=== PATIENT | female | born 1975 | race Caucasian/White ===

== ENCOUNTER → 2016-12-01 | Outpatient (CLI) | payer BC ==
[2016-12-01 17:40] LABS: BASO % 0.3 %; BASO ABS # 0.02 K/uL (0-0.2); COMPLETE YES; EOS % 0.8 %; HEMATOCRIT 38.8 % (37-47); IG% 0.3 %; LYMPH % 30.3 %; LYMPH ABS # 1.91 K/uL (1.2-3.4); MEAN CELL VOLUME 92.4 fL (80-100); MEAN CORPUSCULAR HEMOGLOBIN 29.8 pg (25-34); MEAN CORPUSCULAR HGB CONC 32.2 g/dl (32-36); MEAN PLATELET VOLUME 9.7 fL (7.4-10.4); MONO % 8.2 %; NEUT % 60.1 %; PLATELET COUNT 221 K/uL (130-400); WHITE BLOOD COUNT 6.31 K/uL (4.8-10.8)
[2016-12-01 18:18] LABS: LYME DISEASE AB IGG NEG (NEG); LYME DISEASE AB IGM NEG (NEG)
[2016-12-01 18:35] LABS: ALB/GLOB RATIO 1.2 (0.9-2); ALKALINE PHOSPHATASE 37 U/L (45-117); ALT/SGPT 23 U/L (12-78); AST/SGOT 15 U/L (15-37); BLOOD UREA NITROGEN 20 mg/dl (7-18); BUN/CREATININE RATIO 23.9 (10-20); CARBON DIOXIDE 25 mmol/L (21-32); CHLORIDE 102 mmol/L (98-107); CREATININE 0.83 mg/dl (0.60-1.20); GLUCOSE 89 mg/dl (70-99); POTASSIUM 3.6 mmol/L (3.5-5.1); SODIUM 139 mmol/L (136-145)
[2016-12-01 18:47] LABS: RHEUMATOID FACTOR < 10.0 U/mL (0-15)
[2016-12-01 19:03] LABS: CALCIUM 8.6 mg/dl (8.5-10.1)
--- NOTE | 2016-12-07 08:14 | CODING QUERY MEDICAL NECESSITY ---
SUPPORTING DIAGNOSIS NEEDED Dr. James, A supporting diagnosis is required for the test/procedure performed on this patient in order for us to be reimbursed by the patient's insurance. Please provide a supporting diagnosis for the following test/procedure listed below next to the test name along with your signature. *If there is no additional diagnosis for this patient that would support the following test/procedure please document that below next to the test/procedure. Test(s)/Procedure(s) that require a supporting diagnosis: * ([id number]) VITAMIN D ASSAY DIAGNOSIS: DATE OF SERVICE: 12/01/16 Provider Signature: Date: Thank you Lee Marcus [facility] Information Management Once completed, please kindly fax back to [phone] For questions please call [phone]
== END | disposition home or self-care (01) ==
LOC: C.LABPVFM 14:18
PROVIDERS: ATTEND Family Medicine
DX: R53.83 Other fatigue (principal); M25.50 Pain in unspecified joint; W57.XXXA Bitten or stung by nonvenomous insect and other nonvenomous arthropods, initial encounter; E55.9 Vitamin D deficiency, unspecified

== ENCOUNTER → 2017-08-13 | Outpatient (CLI) | payer BC ==
--- NOTE | 2017-08-13 14:44 | MAMMOGRAPHY REPORT ---
BILATERAL DIGITAL DIAGNOSTIC MAMMOGRAM TOMOSYNTHESIS WITH CAD AND TARGETED RIGHT ULTRASOUND: 8 CLINICAL HISTORY: 42-year-old woman due for annual screening mammogram presents after her provider fe lt a lump in the anterior right breast. Patient initially presented to her provider with a changing nevus in the lower inner quadrant of the right breast, near the areolar edge. Prior mammogram perfor med in [place] is not currently available for review, and is currently being requested. TECHNIQUE: Bilateral breast tomosynthesis in addition to standard 2D mammography was performed. Curre nt study was also evaluated with a Computer Aided Detection (CAD) system. COMPARISON: No prior exams were available for comparison. BREAST COMPOSITION: The tissue of both breasts is heterogeneously dense, which may obscure small mas ses. FINDINGS: A triangular palpable marker overlies the 8:00 anterior right breast, denoting the lump brenda ntified by the patient's provider. In the area of concern in the right breast, there is no evidence of a suspicious mass, asymmetry, area of architectural distortion or microcalcifications. Overall, n o suspicious mass, architectural distortion or cluster of microcalcifications is seen bilaterally. N o focal skin thickening is appreciated bilaterally. Targeted ultrasound was performed in the area of palpable lump pointed out by the patient, in the low er outer periareolar right breast. Sonographically normal tissue is seen without a suspicious solid or cystic mass. No focal skin thickening appreciated. On visual inspection, the nevus in question is located along the areolar at of the lower inner quadra nt of the right breast. It measures 8 mm in maximum dimension, is brownish-black in color, and accor ding to the patient it is changing in texture and size. Therefore, dermatologic or surgical consulta tion for possible excision is recommended. IMPRESSION: ACR BI-RADS CATEGORY 2: BENIGN, TARGETED ULTRASOUND ACR BI-RADS CATEGORY 2: BENIGN 1. No suspicious mammographic or targeted sonographic abnormality in the area of palpable concern in the lower outer periareolar/subareolar right breast. Therefore, clinical follow-up is recommended, as biopsy of a clinically suspicious mass should not be precluded by negative imaging. 2. Overall, no mammographic evidence of malignancy in the breasts. However, we'll request a prior o utside mammogram from [place] and perform an addendum once it is available. 3. Dermatologic or surgical consultation is recommended for assessment of a changing 8 mm nevus loca elina along the areolar edge of the lower inner quadrant of the right breast. These results and recommendations were discussed with the patient at the time of the exam. Approximately 10% of breast cancers are not detected with mammography. A negative mammographic report should not delay biopsy if a clinically suggestive mass is present. Mamta Tello M.D. ay/:08/13/2017 09:27:51 Tyre Retreader: Lake NIEVES)(Theresa), [facility] letter sent: Normal 1/2 BI-RADS Code: ACR BI-RADS Category 2: Benign Ultrasound BI-RADS: ACR BI-RADS Category 2: Benign
== END | disposition home or self-care (01) ==
LOC: C.MAMM 08:43
PROVIDERS: ATTEND Family Medicine
DX: R92.8 Other abnormal and inconclusive findings on diagnostic imaging of breast (principal); N63.10 Unspecified lump in the right breast, unspecified quadrant

== ENCOUNTER 2022-10-13 15:31 | Observation (INO) ==
--- NOTE | 2022-10-13 15:45 | ED Triage Note ---
Date of Service October 13, 2022 History of Present Illness This patient was briefly evaluated while in triage. An abbreviated physical exam was performed. This patient is a 47-year-old Female who presents to the ED for evaluation of multiple complaints including chest pain, dizziness, pressure behind left eye. Her chest pain has been intermittent over the last few weeks. It is located substernally. No alleviating or exacerbating factors. She denies recent cold like symptoms, fever/chills, SOB, abdominal pain. Physical Exam Constitutional: alert and oriented x3. no acute distress. HEENT: normocephalic, atraumatic. normal conjunctiva. EOM's grossly intact. Neck: neck is supple, nontender. C-spine nontender Respiratory: lungs are clear to auscultation without wheezes, rhonchi, or rales bilaterally. equal chest rise. normal respiratory effort, no accessory muscle use. Cardiovascular: normal heart sounds without murmur. regular rate and rhythm. GI: abdomen is soft, nontender. No palpable masses. No rebound tenderness or guarding. No CVA tenderness Neuro: without focal neuro deficits. Speech clear, tongue midline, without facial droop. Psych:appropriate mood and affect. Initial orders for labs and / or imaging were placed and patient was placed in the waiting area until a bed is available. Please see further documentation for the full ED course.
[2022-10-13 16:37] LABS: Basophils # (auto) 0.03 K/uL (0-0.2); Basophils % (auto) 0.6 %; Eosinophils # (auto) 0.06 K/uL (0-0.50); Eosinophils % (auto) 1.1 %; Hematocrit (blood only) 40.1 % (37.0-47.0); Hemoglobin 13.5 g/dl (12.0-16.0); Immature Granulocytes # (auto) 0.02 K/uL (0.01-0.20); Immature Granulocytes % (auto) 0.4 %; Lymphocytes # (auto) 1.56 K/uL (1.2-3.4); Lymphocytes % (auto) 28.7 %; Mean Corpuscular Hemoglobin 30.5 pg (25.0-34.0); Mean Corpuscular Hgb Conc 33.7 g/dL (32.0-36.0); Mean Corpuscular Volume 90.5 fL (80.0-100.0); Mean Platelet Volume 9.3 fL (9.4-12.4); Monocytes # (auto) 0.44 K/uL (0.11-0.59); Monocytes % (auto) 8.1 %; Neutrophils # (auto) 3.33 K/uL (1.40-6.50); Neutrophils % (auto) 61.1 %; Platelet Count 240 K/uL (130-400); RDW Standard Deviation 43.2 fL (36.4-46.3); Red Blood Count 4.43 M/uL (4.20-5.40); White Blood Count 5.44 K/ul (4.8-10.8)
[2022-10-13 16:54] LABS: Alanine Aminotransferase 33 U/L (7-52); Albumin Globulin Ratio 1.5 (0.9-2); Albumin Level 4.4 gm/dl (3.4-5.0); Alkaline Phosphatase 60 U/L (34-104); Anion Gap 5 (3-11); Aspartate Aminotransferase 26 U/L (13-39); BUN Creatinine Ratio 15.9 (10-20); Bilirubin,Total 0.6 mg/dl (0.2-1.0); Blood Urea Nitrogen 10 mg/dl (6-23); Calcium 9.1 mg/dl (8.6-10.3); Carbon Dioxide 30 mmol/L (21-32); Chloride 103 mmol/L (98-107); Est GFR (African American) 122.9 ml/min; Est GFR (Non-African American) 106.1 ml/min; Globulin 2.9 gm/dl (2.5-4.0); Glucose 110 mg/dl (70-99(Fasting)); Lipase 25 U/L (11-82); Potassium 3.4 mmol/L (3.5-5.1); Sodium 138 mmol/L (136-145); Total Protein 7.3 gm/dl (6.0-8.3)
[2022-10-13 16:59] LABS: Troponin I High Sensitivity 3.9 pg/ml (0-14)
[2022-10-13 17:04] LABS: Partial Thromboplastin Ratio 1.1; Partial Thromboplastin Time 29.9 Seconds (21.0-31.0); Prothrombin Time 10.9 Seconds (9.0-12.0)
--- NOTE | 2022-10-13 17:04 | Emergency Department Note ---
History of Present Illness General Chief complaint: Chest Pain Stated complaint: CHEST PAIN,DIZZY Time Seen by Provider: 10/13/22 16:43 Source: patient and RN notes reviewed Mode of arrival: ambulatory Limitations: no limitations History of Present Illness Maximum Pain Intensity: 3 This patient is a 47-year-old female comes in after having chest pain. She says that sharp and behind her left breast that radiates to her back at times she has been having this for the last year and a half she saw her doctor and she said insurance would not approve any testing because she was too young. She has had intermittently since then it last 2 to 3 minutes it feels like needles and tingling it occurs both at exertion and rest. There is no particular pattern to it. No trauma or injury. No shortness of breath or pleurisy no lower extremity pain or swelling. She has been busy working and been her a lot of stress lat gordy. She does have a family history her mother had a CABG at 48 and aunt in her 40s. Home Medications Medication Instructions Recorded Confirmed Type aspirin 81 mg tablet,delayed 81 - 162 mg PO DAILY PRN Chest Pain 04/21/19 10/13/22 History release (Familia Low Dose Aspirin) ibuprofen 200 mg tablet (IBU-200) 200 mg PO Q6H PRN Pain 10/13/22 10/13/22 History Allergies Allergy/AdvReac Type Severity Reaction Status Date / Time Penicillins Allergy HIVES Verified 10/13/22 17:31 Iodinated Contrast Media AdvReac Severe ANAPHYLAXIS Verified 10/13/22 17:31 Past Med/Surg History Medical History Dizziness History of endometriosis Menorrhagia Pelvic pain Surgical History H/O laparoscopy History of surgery benign tumor excision on leg Family History Aunt Breast cancer paternal aunt Denies family history of Ovarian cancer Colorectal cancer Uterine cancer Social History Smoking Status: Never smoker Second Hand Exposure: No; Do You Dip or Chew Tobacco: No; Hx Alcohol Use: No Hx Substance Use: No Preferred Language: Khmer Communication Ability: Effective Drywall Taper Required: No Beliefs That Will Affect Care: None marital status: Current Living Situation: Spouse current occupational status: employed Feels Safe at Home: Yes caffeine: Yes (coffee) Dental Care, Regularly: Yes Physical Activity Frequency: Daily Seatbelt Use: always Sunscreen Use: Yes Assistive Devices: None Review of Systems A total of 10 systems reviewed and were otherwise negative Physical Exam Vital Signs Vital Signs - 24 hr 10/13/22 15:41 10/13/22 16:35 10/13/22 16:47 Temperature 36.7 C Temperature Source Temporal Artery Scan Pulse Rate 80 75 Pulse Rate [Right Brachial] 79 Pulse Rhythm [Right Brachial] Regular Pulse Strength [Right Brachial] Normal Respiratory Rate 20 18 Respiratory Effort / Characteristics Non-Labored Spontaneous Respiratory Depth Normal Normal Respiratory Pattern Regular Blood Pressure 166/95 H Blood Pressure [Right Arm] 141/93 H Blood Pressure Mean 118 Blood Pressure Mean [Right Arm] 109 Blood Pressure Position Sitting Blood Pressure Position [Right Arm] Lying Pulse Oximetry 100 99 Oxygen Delivery Method Room Air Room Air Sepsis Recent Fever Within 48 Hours No Sepsis New/Unexplained Change in Mental Status No Sepsis Action Taken by Nursing No Action Required General: Well developed well nourished middle-age female who appears in no acute distress, breathing comfortably on room air. Normal speech HEENT: Normal cephalic atraumatic. Pupils are equal round and reactive to light. Extraocular movements are intact. Oropharynx is pink with moist mucous membranes. No swelling of the mouth lips or tongue. Neck: Supple with a midline trachea. No meningeal signs or stiffness, no JVD or bruits. No Stridor. Chest: Clear to auscultation bilaterally. No wheezes or rhonchi. No increased work of breathing. She is tender to palpation in the left anterior chest Heart: Regular rate and rhythm without murmurs or gallops. Abdomen: Soft nontender, nondistended without rebound guarding or rigidity. Extremities: No cyanosis clubbing or edema. No calf tenderness or assymetry Spine/Back. Non tender to palpation. No CVA tenderness Skin: Good turgor without rashes. Neurologic exam: Cranial nerves two through 12 are intact. Motor and sensation are intact and symmetrical throughout. Procedures Free Text Procedures The patient was placed in observation status at 2020 @ 10/13/22 for evaluation of chest pain. During the time in observation, the patient was frequently reassessed and received continuous cardiac monitoring, EKGs x3 that were nonischemic appearing, 2 negative troponins. On Final reassessment the patient work-up was unremarkable however the patient felt worse and continued chest pain and the patient will be further observed in the hospital at 202010/13/22 at this time. A total observation time of 4 hours and 36 minutes. Course Administered Medications Discontinued Medications Acetaminophen (Acetaminophen 325 Mg Tab) 650 mg PO Q4H PRN PRN Reason: Pain or Fever Stop: 11/12/22 21:54 Last Admin: 10/14/22 06:11 Dose: 650 mg Documented By: YEYO Aspirin (Aspirin Chew 324 Mg) 324 mg PO NOW STA Stop: 10/13/22 19:27 Last Admin: 10/13/22 19:37 Dose: 324 mg Documented By: TJ Medical Decision Making Differential Diagnosis Acute coronary syndrome, arrhythmia, musculoskeletal, aortic, pulmonary, embolic, costochondritis Medical Records Attestation: I reviewed the patient's medical records. Home Medications Current Medication List: was personally reviewed by me Laboratory Data Attestation: I reviewed the patient's lab results. 10/13/22 16:18 10/13/22 16:18 Lab Results 10/13/22 10/13/22 10/13/22 Range/Units 16:18 16:18 16:18 WBC 5.44 (4.8-10.8) K/ul RBC 4.43 (4.20-5.40) M/uL Hgb 13.5 (12.0-16.0) g/dl Hct 40.1 (37.0-47.0) % MCV 90.5 (80.0-100.0) fL MCH 30.5 (25.0-34.0) pg MCHC 33.7 (32.0-36.0) g/dL RDW Std Deviation 43.2 (36.4-46.3) fL RDW Coeff of Rima 13.0 (11.5-14.5) % Plt Count 240 (130-400) K/uL MPV 9.3 L (9.4-12.4) fL Immature Gran % (Auto) 0.4 % Neut % (Auto) 61.1 % Lymph % (Auto) 28.7 % [place] % (Auto) 8.1 % Eos % (Auto) 1.1 % Baso % (Auto) 0.6 % Neut # (Auto) 3.33 (1.40-6.50) K/uL Lymph # (Auto) 1.56 (1.2-3.4) K/uL [place] # (Auto) 0.44 (0.11-0.59) K/uL Eos # (Auto) 0.06 (0-0.50) K/uL Baso # (Auto) 0.03 (0-0.2) K/uL Immature Gran # (Auto) 0.02 (0.01-0.20) K/uL PT 10.9 (9.0-12.0) Seconds INR 1.0 (0.9-1.1) APTT 29.9 (21.0-31.0) Seconds PTT Ratio 1.1 Sodium 138 (136-145) mmol/L Potassium 3.4 L (3.5-5.1) mmol/L Chloride 103 (98-107) mmol/L Carbon Dioxide 30 (21-32) mmol/L Anion Gap 5 (3-11) BUN 10 (6-23) mg/dl Creatinine 0.63 (0.6-1.2) mg/dl Est Cr Clr Drug Dosing Not Reportable Est GFR ( Amer) 122.9 ml/min Est GFR (Non-Af Amer) 106.1 ml/min BUN/Creatinine Ratio 15.9 (10-20) Glucose 110 H (70-99(Fasting)) mg/dl Calcium 9.1 (8.6-10.3) mg/dl Total Bilirubin 0.6 (0.2-1.0) mg/dl AST 26 (13-39) U/L ALT 33 (7-52) U/L Alkaline Phosphatase 60 (34-104) U/L Troponin I High Sens 3.9 (0-14) pg/ml Total Protein 7.3 (6.0-8.3) gm/dl Albumin 4.4 (3.4-5.0) gm/dl Globulin 2.9 (2.5-4.0) gm/dl Albumin/Globulin Ratio 1.5 (0.9-2) Lipase 25 (11-82) U/L HCG, Qual (Negative) 10/13/22 10/13/22 Range/Units 16:18 18:06 WBC (4.8-10.8) K/ul RBC (4.20-5.40) M/uL Hgb (12.0-16.0) g/dl Hct (37.0-47.0) % MCV (80.0-100.0) fL MCH (25.0-34.0) pg MCHC (32.0-36.0) g/dL RDW Std Deviation (36.4-46.3) fL RDW Coeff of Rima (11.5-14.5) % Plt Count (130-400) K/uL MPV (9.4-12.4) fL Immature Gran % (Auto) % Neut % (Auto) % Lymph % (Auto) % [place] % (Auto) % Eos % (Auto) % Baso % (Auto) % Neut # (Auto) (1.40-6.50) K/uL Lymph # (Auto) (1.2-3.4) K/uL [place] # (Auto) (0.11-0.59) K/uL Eos # (Auto) (0-0.50) K/uL Baso # (Auto) (0-0.2) K/uL Immature Gran # (Auto) (0.01-0.20) K/uL PT (9.0-12.0) Seconds INR (0.9-1.1) APTT (21.0-31.0) Seconds PTT Ratio Sodium (136-145) mmol/L Potassium (3.5-5.1) mmol/L Chloride (98-107) mmol/L Carbon Dioxide (21-32) mmol/L Anion Gap (3-11) BUN (6-23) mg/dl Creatinine (0.6-1.2) mg/dl Est Cr Clr Drug Dosing Est GFR ( Amer) ml/min Est GFR (Non-Af Amer) ml/min BUN/Creatinine Ratio (10-20) Glucose (70-99(Fasting)) mg/dl Calcium (8.6-10.3) mg/dl Total Bilirubin (0.2-1.0) mg/dl AST (13-39) U/L ALT (7-52) U/L Alkaline Phosphatase (34-104) U/L Troponin I High Sens 3.3 (0-14) pg/ml Total Protein (6.0-8.3) gm/dl Albumin (3.4-5.0) gm/dl Globulin (2.5-4.0) gm/dl Albumin/Globulin Ratio (0.9-2) Lipase (11-82) U/L HCG, Qual Negative (Negative) Imaging Data Attestation: I personally reviewed and interpreted this imaging study as follows: My Impression: Chest x-ray-no acute infiltrate, failure, pneumothorax seen Radiologist's Impression: Chest X-Ray 10/13/22 15:45 XR chest 1V portable CLINICAL HISTORY: Chest pain, nonspecific COMPARISON STUDY: Chest radiograph April 21, 2019. FINDINGS: Lung volumes are normal. Lungs are clear. There is no pneumothorax or pleural effusion. Cardiac size is normal. Mediastinal contours are normal. There is no evidence for pulmonary edema. IMPRESSION: No acute cardiopulmonary findings. ACT 112: Negative or not required by law. Electronically signed by: Dean Haq M.D. 10/13/2022 5:08 PM ECG Data Attestation: I personally reviewed and interpreted this ECG as follows: Indication: + chest pain Rate (beats per minute): 74 Rhythm: + normal sinus ECG Intervals/blocks: + Normal QRS, + Normal QT and + Normal TX ECG Hammond: + Normal ECG ST segments: + Normal ST segments ECG Findings: no PACs or no PVCs Comparison ECG Date: no prior available MDM Narrative This patient comes in described above she has chest pain has been going on for a year and a half. It is got worse today. She was placed on ED observation given her family history. on my exam it it is reproducible she does have some cardiac risk factors with family history although otherwise has no risk factors she is physically active and does not have chest pain when she exerts herself or shortness of breath. EKG is reassuring does not show ischemic changes troponin is negative. She has a normal neurologic exam she looks well. I did a second EKG and second troponin , chest x-ray was obtained as well. EKGs were unrema rkable no changes old. Troponins were within normal limits. Chest x-ray is unremarkable. She is also give electrolyte or metabolic abnormality. I went back to reassess her and she says she is not feeling better in fact feels worse I did a 30 EKG is unremarkable. I do think she would benefit from further evaluation and treatment and I did discuss the case with Dr. Ibarra and consulted him to see her for these measures. Continuous cardiac monitoring: Orders placed in EMR for continuous cardiac monitoring: Upon my evaluation the patient was noted to be in normal sinus rhythm with a rate of 70 Impression & Plan Chest pain, Family history of coronary artery disease, Not currently Discharge Plan Visit Data Chief Complaint: Chest Pain Stated Complaint: CHEST PAIN,DIZZY ED Provider: Lanre Spence Discharge Problem: Chest pain, Family history of coronary artery disease, Not currently Patient Disposition: Admitted As Inpatient Discharge Instructions Interventions: ED Discharge Assessment Last Done: 10/13/22 21:22
--- NOTE | 2022-10-13 17:09 | XRay Report ---
XR chest 1V portable CLINICAL HISTORY: Chest pain, nonspecific COMPARISON STUDY: Chest radiograph April 21, 2019. FINDINGS: Lung volumes are normal. Lungs are clear. There is no pneumothorax or pleural effusion. Car diac size is normal. Mediastinal contours are normal. There is no evidence for pulmonary edema. IMPRESSION: No acute cardiopulmonary findings. ACT 112: Negative or not required by law. Electronically signed by: Dean Haq M.D. 10/13/2022 5:08 PM
[2022-10-13 17:16] LABS: Pregnancy Test, Serum Negative (Negative)
[2022-10-13] MEDS ORDERED: ASPIRIN CHEW 324 MG PO STA (19:26)
--- NOTE | 2022-10-13 20:40 | History & Physical Report ---
Date of Service October 13, 2022 Assessment & Plan (1) Chest pain: Plan: 47 year old female admitted for observation for chest pain. Chest Pain: -Troponin negative, EKG NSR without acute ST elevation or depression. -Vitals stable. -No worsening with exertion, palpable reproduction reassuring. -Lipid panel from August 2021 with LDL 144, cholesterol 234, HDL 81. -Low ASCVD risk score from previous blood work. -Will obtain TTE to rule out cardiac issues given family history. -Can consider stress test if negative echo. -Continue to monitor on telemetry. F/E/N/GI: Regular diet. DVT Prophylaxis: Low risk for clot, not needed at current time. Code status: Full code. Dispo: Telemetry. History of Present Illness Chief Complaint: Chest pain Primary Care Provider: Emilia Lindsey MD Aubree is a 47 year old female w/ no discernable past medical history comes to the ED for chest pain. Patient has had chest pain over the past few weeks that have lasted between 2-3 minutes up to 35 minutes at times. The chest pain is sharp in nature and occurs at the left mid-sternal chest and radiates to the upper left arm and back. The pain comes about when she is driving or not doing anything and is not felt when she is occupied or busy. The pain does not feel worse with exertion and she is a pretty active person although less so in the past year due to her job being busy. She says the frequency of the chest pain has increased over the past few weeks, now with 5 episodes per week. The increased frequency along with family history made her worried and want to get checked out for the chest pain. Her mother has a history of triple bypass in her 40's, aunt with heart attack. Denies any fevers, chills, nausea, vomiting, diarrhea, constipation, urinary issues. She had gone through menopause starting 2 years ago and gets hot flashes at times. In the ED her EKG had NSR without acute ST elevations or depressions. Troponin 3.3, negative x2. Otherwise blood work unremarkable. Allergies Allergy/AdvReac Type Severity Reaction Status Date / Time Penicillins Allergy HIVES Verified 10/13/22 17:31 Iodinated Contrast Media AdvReac Severe ANAPHYLAXIS Verified 10/13/22 17:31 Home Medications Medication Instructions Recorded Confirmed Type aspirin 81 mg tablet,delayed 81 - 162 mg PO DAILY PRN Chest Pain 04/21/19 10/13/22 History release (Familia Low Dose Aspirin) ibuprofen 200 mg tablet (IBU-200) 200 mg PO Q6H PRN Pain 10/13/22 10/13/22 History Past Med/Surg History Medical History Dizziness History of endometriosis Menorrhagia Pelvic pain Surgical History H/O laparoscopy History of surgery benign tumor excision on leg Family History Aunt Breast cancer paternal aunt Denies family history of Ovarian cancer Colorectal cancer Uterine cancer Social History Smoking Status: Never smoker Second Hand Exposure: No; Hx Alcohol Use: No Hx Substance Use: No Preferred Language: Upper Sorbian Communication Ability: Effective Linux Security Administrator Required: No Beliefs That Will Affect Care: None marital status: Current Living Situation: Spouse current occupational status: employed Feels Safe at Home: Yes caffeine: Yes (coffee) Dental Care, Regularly: Yes Physical Activity Frequency: Daily Seatbelt Use: always Sunscreen Use: Yes Assistive Devices: None Review of Systems Review of Systems: As per HPI. Physical Exam Constitutional: WD/WN, vitals as above Not in any acute distress. Respiratory: normal respiratory effort, lungs clear to auscultation Cardiovascular: RRR, no murmur, no edema Gastrointestinal (Abdomen): normal bowel sounds, soft, nontender, no hepatosplenomegaly Skin: no rashes, warm and dry Psychiatric: A+Ox3, euthymic affect Results & Data Results & Data Vital Signs (Past 12 Hours) Vital Signs Temp Pulse Pulse Resp BP BP Pulse Ox 10/13/22 16:47 75 10/13/22 16:35 79 18 141/93 H 99 10/13/22 15:41 36.7 C 80 20 166/95 H 100 O2 Del Method 10/13/22 16:47 10/13/22 16:35 Room Air 10/13/22 15:41 Room Air Supervising Physician Co-Signing Physician Notes Attending addendum: I have physically seen this patient, have supervised the medical residents activities, and agree with the H&P unless as otherwise noted. Assessment and Plan: Chest pain- The patient will be admitted to telemetry for serial cardiac enzymes, serial EKG's, cardiac rhythm monitoring and a 2-D echocardiogram with Dopplers. Check fasting lipid panel and hemoglobin A1c If negative work-up, stress echocardiogram Resident Activity Tracking Resident Involvement: Resident Care Provided Care Provided: Adult [facility]
[2022-10-13] MEDS ORDERED: ACETAMINOPHEN 325 MG TAB PO PRN (21:55)
[2022-10-13] MEDS ORDERED: IBUPROFEN 200 MG TAB PO PRN (21:55)
[2022-10-14 07:33] LABS: Basophils # (auto) 0.02 K/uL (0-0.2); Basophils % (auto) 0.5 %; Eosinophils # (auto) 0.08 K/uL (0-0.50); Eosinophils % (auto) 1.8 %; Hematocrit (blood only) 39.4 % (37.0-47.0); Hemoglobin 13.1 g/dl (12.0-16.0); Lymphocytes # (auto) 1.37 K/uL (1.2-3.4); Lymphocytes % (auto) 31.2 %; Mean Corpuscular Hemoglobin 30.6 pg (25.0-34.0); Mean Corpuscular Hgb Conc 33.2 g/dL (32.0-36.0); Mean Corpuscular Volume 92.1 fL (80.0-100.0); Mean Platelet Volume 9.4 fL (9.4-12.4); Monocytes # (auto) 0.42 K/uL (0.11-0.59); Monocytes % (auto) 9.6 %; Neutrophils % (auto) 56.9 %; Platelet Count 220 K/uL (130-400); RDW Coefficient of Variation 13.2 % (11.5-14.5); RDW Standard Deviation 44.8 fL (36.4-46.3); Red Blood Count 4.28 M/uL (4.20-5.40); White Blood Count 4.39 K/ul (4.8-10.8)
--- NOTE | 2022-10-14 09:01 | Discharge Summary ---
Date of Service October 14, 2022 Admission HPI Per Admitting Provider Aubree is a 47 year old female w/ no discernable past medical history comes to the ED for chest pain. Patient has had chest pain over the past few weeks that have lasted between 2-3 minutes up to 35 minutes at times. The chest pain is sharp in nature and occurs at the left mid-sternal chest and radiates to the upper left arm and back. The pain comes about when she is driving or not doing anything and is not felt when she is occupied or busy. The pain does not feel worse with exertion and she is a pretty active person although less so in the past year due to her job being busy. She says the frequency of the chest pain has increased over the past few weeks, now with 5 episodes per week. The increased frequency along with family history made her worried and want to get checked out for the chest pain. Her mother has a history of triple bypass in her 40's, aunt with heart attack. Denies any fevers, chills, nausea, vomiting, diarrhea, constipation, urinary issues. She had gone through menopause starting 2 years ago and gets hot flashes at times. In the ED her EKG had NSR without acute ST elevations or depressions. Troponin 3.3, negative x2. Otherwise blood work unremarkable. Admission Exam Per Admitting Provider Constitutional: WD/WN, vitals as above Not in any acute distress. Respiratory: normal respiratory effort, lungs clear to auscultation Cardiovascular: RRR, no murmur, no edema Gastrointestinal (Abdomen): normal bowel sounds, soft, nontender, no hepatosplenomegaly Skin: no rashes, warm and dry Psychiatric: A+Ox3, euthymic affect Principal Diagnosis Chest pain, likely musculoskeletal Discharge Exam Constitutional WD/WN, vitals as above Respiratory normal respiratory effort, lungs clear to auscultation Cardiovascular RRR, no murmur, no edema Gastrointestinal (Abdomen) normal bowel sounds, soft, nontender, no hepatosplenomegaly Skin no rashes, warm and dry Psychiatric A+Ox3, euthymic affect Discharge Data Allergies Allergy/AdvReac Type Severity Reaction Status Date / Time Penicillins Allergy HIVES Verified 10/13/22 17:31 Iodinated Contrast Media AdvReac Severe ANAPHYLAXIS Verified 10/13/22 17:31 Consultations 10/13/22 20:21 ED Decision to Admit Stat Hospital Course (1) Chest pain: 47 year old female admitted for observation for chest pain. Chest Pain: -Troponin negative, EKG NSR without acute ST elevation or depression. -No worsening with exertion, palpable reproduction reassuring -Lipid panel from August 2021 with LDL 144, cholesterol 234, HDL 81. -Low ASCVD risk score from previous blood work -TTE unremarkable -Stress echocardiogram normal -Suspect pain likely musculoskeletal with some contribution from anxiety, cardiac workup has been negative Discharged with recommendation to pursue OMT/MSK-related treatment Total Time Total Time Spent Total Time Spent (In Minutes): <30 Discharge Plan Discharge Items Patient Disposition: Home - Self-Care Reason For Visit: CHEST PAIN RULE OUT Discharge Diagnosis: Chest pain likely musculoskeletal origin Activity: Resume your previous activity Non-emergency contact: Primary Care Provider Call non-emergency contact if: your symptoms worsen Follow-up/Referrals: Emilai Lindsey MD [Primary Care Provider] - 10/21/22 11:30 am Diet: Regular Addtl Attending Provider Instructions: You were admitted to the hospital for chest pain. Thankfully your evaluation did not suggest cardiac disease and your chest pain is more likely musculoskeletal in nature, with some possible contribution from anxiety/stress. You may likely benefit from OMT (osteopathic manipulative treatment) to target this musculoskeletal origin of pain. A discharge summary will be sent to your primary care physician to ensure continuity of care. Please bring this discharge summary with you to your next office appointment so that your provider can review it at that time. Follow-up appointments: - You have an appointment with Dr. Lindsey in October for follow-up. - Keep all your follow-up appointments as already scheduled. If you cannot make an appointment, notify your provider. Medications: Your medication list has been reviewed and reconciled upon discharge to ensure accuracy and continuity of care. An updated list of all your medications is included with your hospital discharge paperwork. Please review this list closely, and make note of any changes. Take your medications as instructed; do not skip a dose of your medicines. Make sure all of your doctors know every medicine you are taking (including fjuv-pcq-qmqvats medicines, vitamins, and supplements). Call your primary care provider before taking any new medicines (including aamm-omg-vcvxkse medicines, vitamins, and supplements), because some of these may interact with your current medications, or may make your symptoms worse. Tell your primary care provider if you cannot afford your medications. CONTACT YOUR PRIMARY CARE PROVIDER if you experience any of the following: -Chest pain -Difficulty breathing -Palpitations -Difficulty following your treatment plan, or difficulty taking medications CALL 911 OR GO TO THE EMERGENCY DEPARTMENT if you experience any of the following: - Sudden, severe abdominal pain or nausea/vomiting - Severe chest pain, or chest pain that radiates (moves) to your jaw or arm - Sudden, severe shortness of breath or difficulty breathing Thank you for allowing us to participate in your care Pending Studies at Discharge: No Stand-Alone Forms: [facility] Medications and DC Order Prescriptions: Continued aspirin [Familia Low Dose Aspirin] 81 mg Tablet,Delayed Release (Dr/Ec) 81 - 162 mg PO DAILY PRN (Reason: Chest Pain) Rx Instructions: Last known dose was 81mg on the morning of 10/13/22 ibuprofen [IBU-200] 200 mg Tablet 200 mg PO Q6H PRN (Reason: Pain) Discharge Orders: Discharge Order (Routine); Ordered 10/14/22 Ordered By: Harman Germain/Other Patient Handouts: ED Chest Pain, Uncertain Cause Admission Data Admit Date/Time: 10/13/22 20:29 Attending Provider: Luis Martinez Admit Provider: Corbin Duran Primary Care Provider: Emilia Lindsey Other Providers: Stiven Mcguire Other Interventions: Discharge Summary Assessment (RN) Last Done: 10/14/22 09:59 Supervising Physician Co-Signing Physician Notes I personally examined the patient and verified all martins points of history and exam, discussed case, and agree with decision making with Dr Beard. Feels better and would like to go home. Chest pain off and on at different times over the last year or so. Heavy exertionis a former resource paraprofessional. Vitals noted, in general she is awake and alert pleasant no distress. HEENT normocephalic atraumatic mucous membranes moist. Breathing unlabored no accessory muscle use good effort. Skin shows no rashes no pallor or icterus. EKG, troponins noted, stress echo negative for ischemic findings. Chest painalmost certainly rib relatedrecommended outpatient OMT with DO in her PCPs office, recommended deep breathing exercises to stretch her intercostals. Safe/stable for home. Resident Activity Tracking Resident Involvement: Resident Care Provided Care Provided: Adult Hospital Medicine
[2022-10-14 10:05] LABS: BUN Creatinine Ratio 14.1 (10-20); Calcium 9.3 mg/dl (8.6-10.3); Est GFR (African American) 122.3 ml/min; Est GFR (Non-African American) 105.5 ml/min; Potassium 4.2 mmol/L (3.5-5.1)
--- NOTE | 2022-10-14 15:17 | XCELERA ---
[id number] \\[id number]\[id number]___[id number].pdf
--- NOTE | 2022-10-14 15:27 | XCELERA ---
[id number] \\[id number][email or web address]\[email or web address]_PDF_[email or web address]\[id number]}___[id number].pdf
--- NOTE | 2022-10-14 16:41 | Electrocardiogram Report ---
Test Reason : Blood Pressure : / mmHG Vent. Rate : 074 BPM Atrial Rate : 074 BPM P-R Int : 166 ms QRS Dur : 088 ms QT Int : 384 ms P-R-T Axes : 050 059 042 degrees QTc Int : 426 ms Poor data quality, interpretation may be adversely affected Normal sinus rhythm Normal ECG No previous ECGs available Confirmed by Harshal Schwartz ([id number]) on 10/14/2022 4:40:54 PM Referred By: REFERRED SELF Confirmed By:Harshal Schwartz
--- NOTE | 2022-10-14 16:42 | Electrocardiogram Report ---
Test Reason : Blood Pressure : / mmHG Vent. Rate : 070 BPM Atrial Rate : 070 BPM P-R Int : 186 ms QRS Dur : 088 ms QT Int : 402 ms P-R-T Axes : 043 046 023 degrees QTc Int : 434 ms Poor data quality, interpretation may be adversely affected Normal sinus rhythm Normal ECG When compared with ECG of 13-OCT-2022 16:10, (unconfirmed) No significant change was found Confirmed by Harshal Schwartz ([id number]) on 10/14/2022 4:42:11 PM Referred By: REFERRED SELF Confirmed By:Harshal Schwartz
--- NOTE | 2022-10-14 16:45 | Electrocardiogram Report ---
Test Reason : Blood Pressure : / mmHG Vent. Rate : 062 BPM Atrial Rate : 062 BPM P-R Int : 182 ms QRS Dur : 088 ms QT Int : 408 ms P-R-T Axes : 038 061 032 degrees QTc Int : 414 ms Normal sinus rhythm with sinus arrhythmia Normal ECG When compared with ECG of 13-OCT-2022 17:41, (unconfirmed) No significant change was found Confirmed by Harshal Schwartz ([id number]) on 10/14/2022 4:44:49 PM Referred By: REFERRED SELF Confirmed By:Harshal Schawrtz
--- NOTE | 2022-10-14 18:49 | Billing Data ---
Date of Service October 14, 2022 Coding Level of Care Code 67093 IN/OBS DISCH 30 MIN/LESS
--- NOTE | 2022-10-14 20:06 | Billing Data ---
Date of Service October 14, 2022 Coding Level of Care Code 16671 INT INP/OBS CARE
== END 2022-10-14 15:34 | disposition home or self-care (01) ==
LOC: 2N 15:31 → ED 15:31 → SUATTDRO 20:29 → 2N 21:22